=== PATIENT | male | born 1960 | race Caucasian/White ===

== ENCOUNTER 2017-07-07 20:10 | Inpatient (IN) | payer OTHER ==
[2017-07-07 21:08] LABS: Basophils % (Auto) 0.7 % (0.0-1.8); Eosinophils % (Auto) 2.2 % (0.0-4.3); Hematocrit 41.2 % (35.5-45.6); Hemoglobin 14.2 gm/dl (11.8-15.2); Mean Corpuscular HGB Conc 35 % (32-34); Mean Corpuscular Hemoglobin 33 pg (28-32); Mean Corpuscular Volume 96 fl (84-94); Platelet Count 242 K/mm3 (140-440); Red Blood Count 4.28 M/mm3 (3.65-5.03); White Blood Count 8.2 K/mm3 (4.5-11.0)
[2017-07-07 21:24] LABS: Anion Gap 19 mmol/L; BUN/Creatinine Ratio 17.14; Blood Urea Nitrogen 12 mg/dL (9-20); Calcium 9.2 mg/dL (8.4-10.2); Carbon Dioxide 24 mmol/L (22-30); Potassium 4.4 mmol/L (3.6-5.0); Sodium 128 mmol/L (137-145)
[2017-07-07 21:39] LABS: Glucose 599 mg/dL (75-100)
[2017-07-07] MEDS ORDERED: NACL 0.9% 1000 ML 2,000 ML IV ONE (22:05)
[2017-07-07] MEDS ORDERED: NACL 0.9% 1000 ML 2,000 ML ONE (22:09)
[2017-07-07 22:11] LABS: Bilirubin,Urine NEG (Negative); Blood,Urine NEG (Negative); Ketones,Urine NEG (Negative); Leukocyte Esterase,Urine NEG (Negative); Mucus,Urine FEW /HPF; Nitrite,Urine NEG (Negative); Protein,Urine <15 mg/dL mg/dL (Negative); RBC,Urine < 1.0 /HPF (0.0-6.0); Urobilinogen,Urine < 2.0 mg/dL (<2.0)
[2017-07-07 22:17] LABS: WBC,Urine < 1.0 /HPF (0.0-6.0)
[2017-07-08] MEDS ORDERED: NACL 0.9% 1000 ML 1,000 ML IV ONE (00:26)
--- NOTE | 2017-07-08 00:34 | Emergency Department Report ---
- General Chief complaint: Hyperglycemia Stated complaint: HYPOGLYCEMIA Time Seen by Provider: 07/08/17 00:13 Source: patient Mode of arrival: Ambulatory Limitations: Language Barrier - History of Present Illness Initial comments: 50-year-old male here with complaint of weakness and blurry vision. He has had symptoms for several weeks. Patient has had increased thirst over the course of last couple weeks. Denies pain nausea vomiting fever chills. MD Complaint: generalized weakness -: Gradual Location: generalized Consistency: intermittent Improves with: none Worsens with: none - Related Data Allergies Allergy/AdvReac Type Severity Reaction Status Date / Time No Known Allergies Allergy Verified 07/07/17 20:49 ED Review of Systems ROS: Stated complaint: HYPOGLYCEMIA Other details as noted in HPI Constitutional: denies: chills, fever Eyes: denies: eye pain, eye discharge, vision change ENT: denies: ear pain, throat pain Respiratory: denies: cough, shortness of breath, wheezing Cardiovascular: denies: chest pain, palpitations Endocrine: no symptoms reported, increased thirst, increased urine Gastrointestinal: denies: abdominal pain, nausea, diarrhea Genitourinary: denies: urgency, dysuria Musculoskeletal: denies: back pain, joint swelling, arthralgia Skin: denies: rash, lesions Neurological: denies: headache, weakness, paresthesias Psychiatric: denies: anxiety, depression Hematological/Lymphatic: denies: easy bleeding, easy bruising ED Past Medical Hx - Past Medical History Previous Medical History?: No - Surgical History Past Surgical History?: No - Family History Family history: no significant - Social History Smoking Status: Current Every Day Smoker Substance Use Type: Alcohol ED Physical Exam - General Limitations: Language Barrier General appearance: alert, in no apparent distress - Head Head exam: Present: atraumatic, normocephalic - Eye Eye exam: Present: normal appearance, other (ptosis). Absent: scleral icterus, conjunctival injection - ENT ENT exam: Present: mucous membranes moist - Neck Neck exam: Present: normal inspection - Respiratory Respiratory exam: Present: normal lung sounds bilaterally. Absent: respiratory distress, wheezes, rales - Cardiovascular Cardiovascular Exam: Present: regular rate, normal rhythm. Absent: systolic murmur, diastolic murmur, rubs, gallop - GI/Abdominal GI/Abdominal exam: Present: soft, normal bowel sounds - Rectal Rectal exam: Present: deferred - Extremities Exam Extremities exam: Present: normal inspection - Back Exam Back exam: Present: normal inspection - Neurological Exam Neurological exam: Present: alert, oriented X3 - Psychiatric Psychiatric exam: Present: normal affect, normal mood - Skin Skin exam: Present: warm, dry, intact, normal color. Absent: rash ED Course Vital Signs 07/07/17 20:49 Temperature 98.1 F Pulse Rate 52 L Respiratory 18 Rate Blood Pressure 173/88 O2 Sat by Pulse 99 Oximetry ED Medical Decision Making - Lab Data Result diagrams: 07/07/17 20:56 07/07/17 20:56 Laboratory Results - last 24 hr 07/07/17 07/07/17 07/07/17 20:51 20:56 20:56 WBC 8.2 RBC 4.28 Hgb 14.2 Hct 41.2 MCV 96 H MCH 33 H MCHC 35 H RDW 13.0 L Plt Count 242 Lymph % (Auto) 36.1 H [place] % (Auto) 6.1 Eos % (Auto) 2.2 Baso % (Auto) 0.7 Lymph # 3.0 [place] # 0.5 Eos # 0.2 Baso # 0.1 Seg Neutrophils % 54.9 Seg Neutrophils # 4.5 VBG pH Sodium 128 L Potassium 4.4 Chloride 89.0 L Carbon Dioxide 24 Anion Gap 19 BUN 12 Creatinine 0.7 L Estimated GFR > 60 BUN/Creatinine Ratio 17.14 Glucose 599 H* POC Glucose > 500 H Calcium 9.2 Urine Color Urine Turbidity Urine pH Ur Specific [place] Urine Protein Urine Glucose (UA) Urine Ketones Urine Blood Urine Nitrite Urine Bilirubin Urine Urobilinogen Ur Leukocyte Esterase Urine WBC (Auto) Urine RBC (Auto) Urine Mucus 07/07/17 07/07/17 07/07/17 20:56 21:49 23:17 WBC RBC Hgb Hct MCV MCH MCHC RDW Plt Count Lymph % (Auto) [place] % (Auto) Eos % (Auto) Baso % (Auto) Lymph # [place] # Eos # Baso # Seg Neutrophils % Seg Neutrophils # VBG pH 7.340 Sodium Potassium Chloride Carbon Dioxide Anion Gap BUN Creatinine Estimated GFR BUN/Creatinine Ratio Glucose POC Glucose 422 H Calcium Urine Color Colorless Urine Turbidity Clear Urine pH 7.0 Ur Specific [place] 1.029 Urine Protein <15 mg/dl Urine Glucose (UA) >=500 Urine Ketones Neg Urine Blood Neg Urine Nitrite Neg Urine Bilirubin Neg Urine Urobilinogen < 2.0 Ur Leukocyte Esterase Neg Urine WBC (Auto) < 1.0 Urine RBC (Auto) < 1.0 Urine Mucus Few 07/08/17 00:12 WBC RBC Hgb Hct MCV MCH MCHC RDW Plt Count Lymph % (Auto) [place] % (Auto) Eos % (Auto) Baso % (Auto) Lymph # [place] # Eos # Baso # Seg Neutrophils % Seg Neutrophils # VBG pH Sodium Potassium Chloride Carbon Dioxide Anion Gap BUN Creatinine Estimated GFR BUN/Creatinine Ratio Glucose POC Glucose 400 H Calcium Urine Color Urine Turbidity Urine pH Ur Specific [place] Urine Protein Urine Glucose (UA) Urine Ketones Urine Blood Urine Nitrite Urine Bilirubin Urine Urobilinogen Ur Leukocyte Esterase Urine WBC (Auto) Urine RBC (Auto) Urine Mucus - Medical Decision Making 56-year-old Sami-speaking male with new-onset diabetes. Patient has a blood sugar was 600. His sodium is slightly low. He is not in DKA at this point. Given the language challenges and the elevation in his blood sugar I feel that the patient needs to be admitted for IV fluids and temporizing insulin. Plan discussed case with the hospitalist. Plan to admit to the hospitalist service. Discuss with hospitalist. Portions of this chart were dictated with dictation software. There may be dictation errors contained within this note. Critical care attestation.: If time is entered above; I have spent that time in minutes in the direct care of this critically ill patient, excluding procedure time. ED Disposition Clinical Impression: Hyperglycemia, Hyponatremia Disposition: 09 OP ADMIT IP TO THIS HOSP Is pt being admited?: Yes Condition: Stable Referrals: PRIMARY CARE, [Primary Care Provider] - 3-5 Days
[2017-07-08] MEDS ORDERED: ZOFRAN IV PRN (02:59)
[2017-07-08] MEDS ORDERED: TYLENOL PO PRN (02:59)
[2017-07-08] MEDS ORDERED: D50W (25GM) Syringe IV PRN (03:01)
[2017-07-08] MEDS ORDERED: APRESOLINE IV PRN (03:13)
--- NOTE | 2017-07-08 04:08 | History and Physical Report ---
CHIEF COMPLAINT: Polyuria. Other complaints include polydipsia. HISTORY OF PRESENT ILLNESS: The patient is a 56-year-old male who said he has been having excessive urination, increased thirst, and blurry vision going on for the last couple of weeks. There is a history of nausea, but no vomiting. The patient denies history of chest pain or shortness of breath and said he feels weak and that he has had this problem before and went to an urgent care from where he was referred to come to the Emergency Room. PAST MEDICAL HISTORY: Unremarkable. PAST SURGICAL HISTORY: Unremarkable as well FAMILY HISTORY: Noncontributory. SOCIAL HISTORY: The patient smokes cigarettes, drinks alcohol, and does not use illicit drugs. MEDICATIONS: The patient is not on any medication. ALLERGIES: There are no known drug allergies. REVIEW OF SYSTEMS: CONSTITUTIONAL: There is no fever. No chills. No diaphoresis. HEENT: There is no headache, but has blurry vision. There is no sore throat. CARDIOVASCULAR SYSTEM: There is no chest pain or orthopnea. RESPIRATORY SYSTEM: There is no shortness of breath or cough. GASTROINTESTINAL SYSTEM: There is nausea, but no vomiting. No abdominal pain, diarrhea, or constipation. NEUROLOGICAL SYSTEM: There is generalized weakness, but no dizziness. No numbness. No blurry vision. No altered mental status. MUSCULOSKELETAL SYSTEM: There is no joint pain or swelling. DERMATOLOGICAL SYSTEM: There is no skin rash or itching. GENITOURINARY SYSTEM: There is polyuria, but no hematuria and no flank pain. Rest of system review is normal. PHYSICAL EXAMINATION: GENERAL: At the time of exam, the patient was found to be alert and oriented x3 and not in acute distress. VITAL SIGNS: Shows temperature of 98.1, pulse of 52, respirations 18, O2 sat of 99% on room air with blood pressure of 173/88. HEENT EXAM: Showed pupils to be equal, round, and reactive to light and accommodating. Extraocular muscles are intact. NECK: Supple with no JVD or carotid bruit. CARDIOVASCULAR SYSTEM: Showed normal first and second heart sounds with no gallops or murmur. RESPIRATORY SYSTEM: Show good air entry on both sides of the lung with no abnormal breath sounds. GASTROINTESTINAL SYSTEM: Show abdomen to be full, soft, and nontender with no organomegaly or rigidity. NEUROLOGICAL EXAM: Shows no focal deficit. MUSCULOSKELETAL SYSTEM: Show no joint swelling or tenderness. DERMATOLOGICAL SYSTEM: Show no skin rash. GENITOURINARY SYSTEM: Showing no costovertebral angle tenderness. PERTINENT LABORATORY AND IMAGING STUDIES: The patient had CBC done that showed normal white count. Normal hemoglobin and normal hematocrit. MCV is elevated with a value of 96. CBC differential showed elevated lymphocyte count of 36.1 with normal segmented neutrophils. The patient's chemistry showed low sodium of 128 with low chloride of 89 and unremarkable renal function. Blood glucose is critically high with a value of 599. The patient's CO2 is normal with a value of 14. The patient's anion gap is about 15 and urinalysis was unremarkable with negative ketone. Normal urine WBC. Negative leukocyte esterase. IMAGING STUDIES: There were no imaging studies were done at this time. DIAGNOSES: 1. New onset diabetes mellitus. 2. Elevated blood pressure. 3. Low heart rate. PLAN: The patient will be admitted to medical floor on telemetry and vital signs will be monitored according to telemetry protocol. The patient will have Accu-Chek before meals and at bedtime followed by sliding scale using moderate sliding scale level and using regular insulin to cover the patient. The patient will be on IV normal saline at 125 mL an hour. We will have cardiac enzymes checked q.6 hours x 2 levels. The patient will be on IV hydralazine 10 mg every 4 hours for blood pressure above 150/90 and diet will be consistent of carbohydrate diet. The patient will be on IV normal saline at 125 mL an hour and will be on IV Zofran 4 mg every 8 hours for nausea and vomiting and will be on Tylenol 650 mg every 4 hours for fever and headache. The patient will be on heparin 5000 units subcutaneous q.12 hours for DVT prophylaxis and the patient will have swatch checker/dietitian consult for education on diabetes. JOB# [id number] OCN/NTS
--- NOTE | 2017-07-08 07:28 | Admit Criteria Form ---
<ISHA ARAUJO - Last Filed: 07/08/17 07:25> Admission Criteria Documentation: DIABETES Clinical Indications for Admission to Inpatient Care (rosebud/check or initial the applicable condition/criteria) Admission is indicated by 1 or more of the following(1)(2)(3)(4)(5): [ ]a) Diabetic ketoacidosis as indicated by ALL the following(9): [ ]i) Hyperglycemia (eg, plasma glucose greater than 200 mg/ dL (11.1 mmol/L)) [ ]ii) Acidosis (eg, arterial or venous pH less than 7.30, serum bicarbonate level less than 15 mEq/L (mmol/L)) [A] [ ]iii) Moderate ketonuria or ketonemia [ ]b) Hyperglycemic hyperosmolar state as indicated by ALL of the following: [ ]i) Plasma glucose greater than 600 mg/dL (33.3 mmol/L) [ ]ii) Serum osmolality greater than 320 mOsm/kg (mmol/kg) [ ]iii) Neurologic dysfunction (eg, stupor, coma, hemiparesis , seizure)(14) [X]c) Hyperglycemia requiring inpatient care as indicated by 1 or more of the following: [ ]i) Altered mental status that is severe or persistent []ii) Dehydration that is severe or persistent [ ]iii) Vomiting that is severe or persistent [ ]iv) Unexplained fever or severe infection [X ]v) Significant electrolyte abnormality(e.g., hypokalemia , hyperkalemia, hypernatremia) not responsive to outpatient and observation care treatment Extended stay beyond goal length of stay may be needed for(3)(20) [ ]a) Treatment of precipitating causes(2) [ ]b) Development of significant hypoglycemia(22)(23) [ ]c) Complications of treatment(24) [ ]d) Complications of decompensated diabetes (e.g., acute gastric dilatation, persistent metabolic or neurologic derangement) (25) [ ]e) Active Comorbidities [ ]f) Older patients The original [facility] [place] [facility] content created by Lucita Kimball has been revised. The portions of the content which have been revised are identified through the use of italic text or in bold,and Lucita Kimball has neither reviewed nor approved the modified material. All other unmodified content is copyright [facility]. Please see references footnoted in the original [facility] edition 2017 Admission Criteria Met: Yes <FRED WATERMAN - Last Filed: 07/08/17 16:41> Admission Criteria Documentation: I am administratively signing this note. This note has no clinical bearing on the patient's admission status.
[2017-07-08 09:42] LABS: Creatine Kinase MB 2.1 ng/mL (0.0-4.0)
[2017-07-08 09:46] LABS: Creatine Kinase 88 units/L (55-170)
[2017-07-08] MEDS: HEPARIN SUB-Q SCH ×2 (12:01→22:08)
[2017-07-08 13:45] LABS: Creatine Kinase 89 units/L (55-170)
--- NOTE | 2017-07-08 15:36 | Event Note ---
Date: 07/08/17 Patient has been admitted this morning for new onset diabetes mellitus and started on scheduled insulin and long-acting basal insulin. We'll monitor Accu- Chek and adjust his insulin as needed. History and physical, labs and imaging were reviewed.
[2017-07-08] MEDS: NACL 0.9% 1000 ML 1,000 ML IV SCH (20:45)
[2017-07-09 05:38] LABS: Anion Gap 16 mmol/L; BUN/Creatinine Ratio 17.14; Basophils % (Auto) 0.8 % (0.0-1.8); Blood Urea Nitrogen 12 mg/dL (9-20); Calcium 7.6 mg/dL (8.4-10.2); Carbon Dioxide 21 mmol/L (22-30); Chloride 107.8 mmol/L (98-107); Glucose 123 mg/dL (75-100); Hematocrit 35.9 % (35.5-45.6); Hemoglobin 12.6 gm/dl (11.8-15.2); Mean Corpuscular HGB Conc 35 % (32-34); Mean Corpuscular Hemoglobin 34 pg (28-32); Mean Corpuscular Volume 96 fl (84-94); Platelet Count 208 K/mm3 (140-440); Potassium 3.9 mmol/L (3.6-5.0); Red Blood Count 3.75 M/mm3 (3.65-5.03); Red Cell Distribution Width 13.2 % (13.2-15.2); Sodium 141 mmol/L (137-145); White Blood Count 8.3 K/mm3 (4.5-11.0)
[2017-07-09] MEDS: NACL 0.9% 1000 ML 1,000 ML IV SCH ×2 (07:02→17:15)
[2017-07-09] MEDS: HEPARIN SUB-Q SCH ×2 (12:51→23:12)
--- NOTE | 2017-07-09 14:28 | Progress Note ---
Assessment and Plan Assessment and plan: Diabetes mellitus type 2 with hyperglycemia - Newly diagnosed - Patient is on sliding-scale insulin and basal insulin - Dietary education, diabetic education - Accu check QACHS - We will adjust insulin as needed - Hemoglobin A1c is 16.5 so patient need outpatient insulin DVT prophylaxis - Heparin Disposition - Patient to be discharged tomorrow. History Interval history: Patient was seen and evaluated this morning, I used a financial service professional and I explained to do this condition and the management plan and follow-up care and patient understood. Hospitalist Physical - Physical exam Narrative exam: Not in cardiopulmonary distress. The patient appeared well nourished and normally developed. Vital signs as documented. Head exam is unremarkable. No scleral icterus . Neck is without jugular venous distension. Lungs are clear to auscultation. Cardiac exam reveals regular rate and Rhythm. Abdominal exam reveals normal bowel sounds, no masses. Extremities are nonedematous. SORORITY MOTHER: Alert and oriented 3. No focal weakness. - Constitutional Vitals: Temp Pulse Resp BP Pulse Ox 98.3 F 46 L 46 H 139/74 16 L 07/09/17 07:40 07/09/17 07:40 07/09/17 07:40 07/09/17 07:40 07/09/17 07:40 Results - Labs CBC & Chem 7: 07/09/17 03:56 07/09/17 03:56 Labs: Laboratory Last Values WBC 8.3 K/mm3 (4.5-11.0) 07/09/17 03:56 RBC 3.75 M/mm3 (3.65-5.03) 07/09/17 03:56 Hgb 12.6 gm/dl (11.8-15.2) 07/09/17 03:56 Hct 35.9 % (35.5-45.6) 07/09/17 03:56 MCV 96 fl (84-94) H 07/09/17 03:56 MCH 34 pg (28-32) H 07/09/17 03:56 MCHC 35 % (32-34) H 07/09/17 03:56 RDW 13.2 % (13.2-15.2) 07/09/17 03:56 Plt Count 208 K/mm3 (140-440) 07/09/17 03:56 Lymph % (Auto) 39.0 % (13.4-35.0) H 07/09/17 03:56 [place] % (Auto) 4.9 % (0.0-7.3) 07/09/17 03:56 Eos % (Auto) 2.0 % (0.0-4.3) 07/09/17 03:56 Baso % (Auto) 0.8 % (0.0-1.8) 07/09/17 03:56 Lymph # 3.2 K/mm3 (1.2-5.4) 07/09/17 03:56 [place] # 0.4 K/mm3 (0.0-0.8) 07/09/17 03:56 Eos # 0.2 K/mm3 (0.0-0.4) 07/09/17 03:56 Baso # 0.1 K/mm3 (0.0-0.1) 07/09/17 03:56 Seg Neutrophils % 53.3 % (40.0-70.0) 07/09/17 03:56 Seg Neutrophils # 4.4 K/mm3 (1.8-7.7) 07/09/17 03:56 VBG pH 7.340 (7.320-7.420) 07/07/17 20:56 Sodium 141 mmol/L (137-145) D 07/09/17 03:56 Potassium 3.9 mmol/L (3.6-5.0) 07/09/17 03:56 Chloride 107.8 mmol/L (98-107) H 07/09/17 03:56 Carbon Dioxide 21 mmol/L (22-30) L 07/09/17 03:56 Anion Gap 16 mmol/L 07/09/17 03:56 BUN 12 mg/dL (9-20) 07/09/17 03:56 Creatinine 0.7 mg/dL (0.8-1.5) L 07/09/17 03:56 Estimated GFR > 60 ml/min 07/09/17 03:56 BUN/Creatinine Ratio 17.14 % 07/09/17 03:56 Glucose 123 mg/dL (75-100) H 07/09/17 03:56 POC Glucose 259 (70-105) H 07/09/17 11:51 Hemoglobin A1c 16.5 % (4-6) H 07/09/17 03:56 Calcium 7.6 mg/dL (8.4-10.2) L D 07/09/17 03:56 Total Creatine Kinase 89 units/L (55-170) 07/08/17 13:02 CK-MB (CK-2) 2.0 ng/mL (0.0-4.0) 07/08/17 13:02 CK-MB (CK-2) Rel Index 2.2 (0-4) 07/08/17 13:02 Troponin T < 0.010 ng/mL (0.00-0.029) 07/08/17 13:02 Urine Color Colorless (Yellow) 07/07/17 21:49 Urine Turbidity Clear (Clear) 07/07/17 21:49 Urine pH 7.0 (5.0-7.0) 07/07/17 21:49 Ur Specific [place] 1.029 (1.003-1.030) 07/07/17 21:49 Urine Protein <15 mg/dl mg/dL (Negative) 07/07/17 21:49 Urine Glucose (UA) >=500 mg/dL (Negative) 07/07/17 21:49 Urine Ketones Neg mg/dL (Negative) 07/07/17 21:49 Urine Blood Neg (Negative) 07/07/17 21:49 Urine Nitrite Neg (Negative) 07/07/17 21:49 Urine Bilirubin Neg (Negative) 07/07/17 21:49 Urine Urobilinogen < 2.0 mg/dL (<2.0) 07/07/17 21:49 Ur Leukocyte Esterase Neg (Negative) 07/07/17 21:49 Urine WBC (Auto) < 1.0 /HPF (0.0-6.0) 07/07/17 21:49 Urine RBC (Auto) < 1.0 /HPF (0.0-6.0) 07/07/17 21:49 Urine Mucus Few /HPF 07/07/17 21:49
[2017-07-10] MEDS: NACL 0.9% 1000 ML 1,000 ML IV SCH (02:06)
[2017-07-10 06:29] LABS: Anion Gap 15 mmol/L; Blood Urea Nitrogen 9 mg/dL (9-20); Calcium 7.9 mg/dL (8.4-10.2); Carbon Dioxide 23 mmol/L (22-30); Chloride 106.7 mmol/L (98-107); Glucose 87 mg/dL (75-100); Potassium 3.6 mmol/L (3.6-5.0); Sodium 141 mmol/L (137-145)
--- NOTE | 2017-07-10 08:24 | Discharge Summary ---
Providers - Providers Date of Admission: 07/08/17 02:57 Date of discharge: 07/10/17 Attending physician: MERLIN CHOUDHURY MD 07/08/17 06:02 Consult to Dietitian/Nutrition [CONS] Routine Physician Instructions: Reason For Exam: Reason for Consult: Diet education Primary care physician: [employer] MACHINE FEEDER Hospitalization Reason for admission: New onset diabetes mellitus Condition: Stable Hospital course: 56-year-old man with no significant past medical history presented to the emergency department complaining of excessive urination, thirst and blurry vision that was going on for the last couple of weeks. Patient also admitted for nausea but no vomiting. The patient denied chest pain, fever, chills. Patient went to urgent care clinic and blood sugar was high and referred to emergency department. Patient was admitted for the management of new onset type 2 diabetes mellitus , with hyperglycemia. Patient was not in DKA. Patient was started with insulin and manage appropriately for diabetes mellitus. Hemoglobin A1c was 16.5. The patient was not a candidate for oral hypoglycemics and he was discharged with insulin. I explained to him to monitor his blood sugar and take the log to his primary care physician. I have explained his disease condition, management plan and follow-up appointment using interpreter translator and patient verbalized he understood. Patient is hemodynamically stable at the time of discharge. Patient was given a prescription for insulin and diabetic supplies. Disposition: DC-01 TO HOME OR SELFCARE Time spent for discharge: 31 minutes - Discharge Diagnoses (1) Hyperglycemia Status: Acute (2) Hyponatremia Status: Acute Core Measure Documentation - Palliative Care Palliative Care/ Comfort Measures: Not Applicable - Core Measures Any of the following diagnoses?: none Exam - Physical Exam Narrative exam: Not in cardiopulmonary distress. The patient appeared well nourished and normally developed. Vital signs as documented. Head exam is unremarkable. No scleral icterus . Neck is without jugular venous distension. Lungs are clear to auscultation. Cardiac exam reveals regular rate and Rhythm. Abdominal exam reveals normal bowel sounds, no masses. Extremities are nonedematous. CHICKEN CATCHER: Alert and oriented 3. No focal weakness. - Constitutional Vitals: Temp Pulse Resp BP Pulse Ox 98.2 F 41 L 18 138/67 100 07/10/17 07:40 07/10/17 07:40 07/10/17 02:54 07/10/17 07:40 07/10/17 07:40 Plan Activity: no restrictions Weight Bearing Status: Full Weight Bearing Diet: diabetic Follow up with: PRIMARY CARE,MD [Primary Care Provider] - 3-5 Days Prescriptions: Diabetic Supplies,Miscell [Adi Reynoso] 1 each MC BID #1 miscell Insulin NPH/Regular [NovoLIN 70/30] 10 unit SUB-Q QPM #1 vial Insulin NPH/Regular [Novolin 70/30] 15 unit SQ QAM #1 vial
[2017-07-10] MEDS: HEPARIN SUB-Q SCH (11:23)
[2017-07-10] MEDS ORDERED: WATER FOR INJ (PF) 10 ML ONE (15:10)
[2017-07-10 15:52] VITALS: BP 161/79
== END 2017-07-10 18:15 | disposition home or self-care (01) | DRG 638 ==
LOC: ED 20:10 → 3A 07-08 02:57
PROVIDERS: ADMIT Internal Medicine; ATTEND Internal Medicine
DX: E11.65 Type 2 diabetes mellitus with hyperglycemia (principal); E87.1 Hypo-osmolality and hyponatremia; F17.210 Nicotine dependence, cigarettes, uncomplicated
CPT/HCPCS: 36415; 80048; 81001; 82550; 82553; 82805; 82962; 83036; 84484; 85025; 96361; 96374; 99406; J1644; J1815; J7030